=== PATIENT | female | born 1995 | race African-American/Black ===

== ENCOUNTER 2023-07-26 00:18 | Emergency (ER) | payer SELFPAY ==
[~2023-07-26] VITALS: Ht 160 cm; Wt 49.4 kg
[2023-07-26 00:22] VITALS: BP 135/91; O2SAT 100
[2023-07-26 01:23] LABS: CLARITY URINE CLEAR (CLEAR); COLOR URINE YELLOW (YELLOW); GLUCOSE URINE 3+ (NEGATIVE); KETONES URINE TRACE (NEGATIVE); LEUKOCYTE ESTERASE URINE TRACE (NEGATIVE); NITRITE URINE NEGATIVE (NEGATIVE); OCCULT BLOOD URINE NEGATIVE (NEGATIVE); PH URINE 6.5 (4.5-8.0); PROTEIN URINE NEGATIVE (NEGATIVE); UROBILINOGEN URINE 0.2 E.U./dL (0.2-1.0)
[2023-07-26] MEDS: KETOROLAC 30MG/ML VIAL IM STA (01:35)
[2023-07-26 01:40] LABS: BACTERIA URINE TRACE; RBC URINE NONE SEEN /hpf (0-2); SQUAMOUS EPITHELIAL CELL URINE 1+ /lpf (RARE/1+)
[2023-07-26 03:24] LABS: ALANINE AMINOTRANSFERASE < 7 IU/L (10-49); ALBUMIN 4.6 g/dL (3.2-4.8); ASPARTATE AMINOTRANSFERASE 11 IU/L (<34); BILIRUBIN TOTAL 1.1 mg/dL (0.1-1.0); CALCIUM 9.8 mg/dL (8.7-10.4); CARBON DIOXIDE 26 mEq/L (21-32); CHLORIDE 100 mEq/L (98-107); CREATININE 0.7 mg/dL (0.6-1.0); GLUCOSE 273 mg/dL (70-105); POTASSIUM 3.6 mEq/L (3.5-5.1); SODIUM 133 mEq/L (136-145); UREA NITROGEN BLOOD 6 mg/dL (9-23)
[2023-07-26 04:29] LABS: BASOPHILS % 0.5 % (0.0-2.0); EOSINOPHILS % 0.8 % (0.0-5.0); HEMOGLOBIN. 13.9 g/dL (12.0-16.0); LYMPHOCYTES % 25.9 % (20.0-50.0); MEAN CORPUSCULAR HEMOGLOBIN 32.1 pg (28.0-32.0); MEAN CORPUSCULAR HGB CONC 35.6 g/dL (31.0-37.0); MEAN CORPUSCULAR VOLUME 90.1 fL (81.0-99.0); MEAN PLATELET VOLUME 7.6 fl (7.4-10.4); MONOCYTES % 7.1 % (2.0-8.0); NEUTROPHILS % 65.7 % (40.0-76.0); PLATELET 473 x1000/uL (130-400); RED BLOOD CELL COUNT 4.33 mill/uL (4.2-5.4); RED CELL DISTRIBUTION WIDTH 13.8 % (11.6-14.6); WHITE BLOOD COUNT 6.2 x1000/uL (4.5-11.0)
[2023-07-26] MEDS ORDERED: IBUP-2028 MT (04:52)
[2023-07-26 05:25] VITALS: PULSE 78; RESP 12; TEMP 97.5
== END 2023-07-26 05:27 | disposition home or self-care (01) ==
LOC: ER 00:32
DX: R10.84 Generalized abdominal pain (principal); K59.00 Constipation, unspecified; J45.909 Unspecified asthma, uncomplicated; E11.9 Type 2 diabetes mellitus without complications
CPT/HCPCS: 80053; 81003; 81025; 83690; 85025; 36415; 74176; 96372; 99285; J1885; Z7610

== ENCOUNTER 2023-09-03 13:06 | Emergency (ER) | payer MEDICAID ==
[~2023-09-03] VITALS: Ht 160 cm; Wt 58.0 kg
[~2023-09-03 13:06] MED LIST: IBUP-2028 MT
[2023-09-03 13:19] VITALS: BP 126/89; PULSE 111; RESP 16; TEMP 98.6; O2SAT 100
[2023-09-03] MEDS ORDERED: IPRATROPIUM BROMIDE (0.02%) 0.5MG/2.5ML NEB HHN ONE (13:30)
[2023-09-03] MEDS ORDERED: ALBUTEROL (0.083%) 2.5MG/3ML NEB HHN ONE (13:30)
[2023-09-03] MEDS ORDERED: PREDNISONE 20MG TABLET PO ONE (13:30)
== END 2023-09-03 16:25 | disposition left against medical advice (07) ==
LOC: ER 13:06
DX: R06.02 Shortness of breath (principal); Z53.21 Procedure and treatment not carried out due to patient leaving prior to being seen by health care provider
CPT/HCPCS: 71045; 99281

== ENCOUNTER 2025-01-29 21:45 | Emergency (ER) | payer MEDICAID ==
[~2025-01-29] VITALS: Ht 165.1 cm; Wt 55.0 kg
[~2025-01-29 21:45] MED LIST changes: +GABA-1180 MT; +GLIP5TAB22 PO; +METF-416 PO
[2025-01-29 21:47] VITALS: O2SAT 96
[2025-01-29] MEDS ORDERED: ONDANSETRON HCL 4MG/2ML INJ IV ONE (22:45)
[2025-01-29] MEDS ORDERED: KETOROLAC 15MG/ML VIAL IV ONE (22:45)
[2025-01-29 23:25] VITALS: BP 122/80; PULSE 91; RESP 19; TEMP 36.9; O2SAT 99
== END 2025-01-29 23:29 | disposition left against medical advice (07) ==
LOC: ER 21:45
DX: G89.29 Other chronic pain (principal); M54.9 Dorsalgia, unspecified; F12.10 Cannabis abuse, uncomplicated; E11.9 Type 2 diabetes mellitus without complications; J45.909 Unspecified asthma, uncomplicated; I49.9 Cardiac arrhythmia, unspecified; Z88.5 Allergy status to narcotic agent; Z91.012 Allergy to eggs
CPT/HCPCS: 93005; 99283